=== PATIENT | male | born 1960 | race Caucasian/White ===

== ENCOUNTER 2021-06-01 12:33 | Emergency (ER) | payer MEDICAID ==
[~2021-06-01] VITALS: Ht 165.1 cm; Wt 83.0 kg
[2021-06-01 13:09] VITALS: BP 142/110
--- NOTE | 2021-06-01 13:14 | NUR ---
PT TO ABBE MUÑOZ
--- NOTE | 2021-06-01 13:39 | NUR ---
60 Y/O MALE C/O BODY RASH X 4 DAYS. DENIES PAIN. DENIES FEVER/CHILLS. DENIES N/V/D. DENIES SOB, DENIES CHEST PAIN. DENIES PMH NKA
[2021-06-01] MEDS ORDERED: diphenhydrAMINE 50 MG CAP PO ONE (15:25)
[2021-06-01] MEDS ORDERED: predniSONE 20 MG TAB PO ONE (15:25)
[2021-06-01] MEDS ORDERED: FAMOTIDINE 20 MG TAB PO ONE (15:25)
[2021-06-01] MEDS ORDERED: PRED20TA5 PO (15:49)
[2021-06-01] MEDS ORDERED: DIPH25TA53 PO (15:49)
[2021-06-01] MEDS ORDERED: FAMO-90 PO (15:49)
[2021-06-01 16:37] VITALS: BP 142/110
--- NOTE | 2021-06-01 16:37 | NUR ---
Patient discharged with v/s stable. Written and verbal after care instructions given and explained. Patient alert, oriented and verbalized understanding of instructions. Ambulatory with steady gait. All questions addressed prior to discharge. ID band removed. Patient advised to follow up with PMD. Rx of PREDISONE, PEPCID, AND BENADRYL given. Patient educated on indication of medication including possible reaction and side effects. Opportunity to ask questions provided and answered.
== END 2021-06-01 16:37 | disposition home or self-care (01) ==
LOC: MED 12:33
DX: T78.49XA Other allergy, initial encounter (principal); Z79.899 Other long term (current) drug therapy
CPT/HCPCS: 99284; J7512; Q0163

== ENCOUNTER 2021-06-07 06:23 | Inpatient (IN) | payer MEDICAID, OTHER ==
[~2021-06-07] VITALS: Ht 160 cm; Wt 81.6 kg
[~2021-06-07 06:23] MED LIST: DIPH25TA53 PO; FAMO-90 PO; PRED20TA5 PO
[2021-06-07 06:27] VITALS: BP 149/111
--- NOTE | 2021-06-07 06:34 | NUR ---
PT AMBULATORY TO BED 07.
--- NOTE | 2021-06-07 06:34 | NUR ---
Anna mills in [facility] - 06/07/21 at 0636 by MEDGARCÍAK PT AMBULATORY TO BED .
--- NOTE | 2021-06-07 06:55 | NUR ---
Dr. Yang examining patient.
--- NOTE | 2021-06-07 06:58 | NUR ---
60 y/o BIB SELF FOR CHEST PAIN X 1 HOUR. PT STATES THAT HE HAS HTN AND HAS BEEN TAKING HIS MEDS FOR HTN. PT WAS PRESCRIBED SOME ALLERGY MEDICAITON AND SINCE THEN PT HAS BEEN EXPERIENCING CHEST PAIN 05/22. DENIES F/N/D PMH:HTN NKA
[2021-06-07] MEDS ORDERED: ASPIRIN 325 MG TAB PO ONE (07:00)
[2021-06-07] MEDS ORDERED: NITROGLYCERIN 0.4 MG TAB SL ONE (07:00)
--- NOTE | 2021-06-07 07:13 | NUR ---
X-Ray at bedside.
--- NOTE | 2021-06-07 07:14 | NUR ---
REPORT RECIEVED FROM PRISCILA VICTORIA FOR TRANSFER OF CARE. PATIENT IS SITTING IN BED ALERT AND RESPONSIVE.
[2021-06-07 07:15] LABS: HEMATOCRIT 44.3 % (36-52); HEMOGLOBIN 14.8 g/dL (12.0-18.0); MEAN CORPUSCULAR HEMOGLOBIN 30 pg (27-31); MEAN CORPUSCULAR HGB CONC 33 g/dL (33-37); MEAN CORPUSCULAR VOLUME 89.3 fL (80-94); PLATELET COUNT (AUTO) 370 K/uL (140-450); RED BLOOD CELL COUNT(AUTO) 4.96 MIL/uL (4.20-6.10); RED CELL DISTRIBUTION WIDTH 14.3 % (11.6-13.7); WHITE BLOOD COUNT (AUTO) 14.6 K/uL (4.8-10.8)
--- NOTE | 2021-06-07 07:19 | NUR ---
Pt report given to JOIE CANDELARIA. Transfer of care at this time.
--- NOTE | 2021-06-07 07:40 | NUR ---
LISSY SPECIMEN COLLECTED AND HANDED TO EDWARDO YOUNG
--- NOTE | 2021-06-07 07:42 | NUR ---
1st dose of nitro given vitals before admin: 149/113 pulse @ 76 5/10 pain 2nd dose not given at this time, pt states pain has calmed down: 125/92 pulse @ 85 0/10 pain
[2021-06-07 08:05] LABS: EOSINOPHILS % (MANUAL) 2 % (0-4); LYMPHOCYTES % (MANUAL) 35 % (20-46); METAMYELOCYTES % 1 % (0-0); MONOCYTES % (MANUAL) 10 % (5-12)
[2021-06-07 08:06] LABS: CARBON DIOXIDE 23.9 mmol/L (21-32); CREATININE 0.9 mg/dL (0.6-1.3)
[2021-06-07 08:09] LABS: BARBITURATE, URINE NEGATIVE ng/ml (NEG <=200); BENZODIAZEPINE, URINE NEGATIVE ng/mL (NEG <=200); CANNABINOID, URINE NEGATIVE ng/mL (NEG <=50); COCAINE, URINE NEGATIVE ng/mL (NEG <=300); OPIATE, URINE NEGATIVE ng/mL (NEG <=2000); PHENCYCLIDINE SCREEN,URINE NEGATIVE ng/mL (NEG <=25)
[2021-06-07 08:22] LABS: ANION GAP 12.5 (8-16); POTASSIUM 3.4 mmol/L (3.5-5.1)
--- NOTE | 2021-06-07 09:40 | NUR ---
albert swabbed, anthony cryogenics engineer sent to henrique herrera
[2021-06-07] MEDS ORDERED: LISI-487 PO (09:55)
[2021-06-07] MEDS ORDERED: FAMO-368 PO (09:55)
[2021-06-07] MEDS ORDERED: METO25TA PO (09:55)
[2021-06-07] MEDS ORDERED: ATOR20TA PO (09:55)
[2021-06-07] MEDS ORDERED: DIPH-631 PO (09:55)
[2021-06-07] MEDS ORDERED: NITROGLYCERIN 0.4 MG TAB SL PRN (10:50)
[2021-06-07] MEDS ORDERED: MAG SULF 2000 MG/WATER PREMIX 50 ML IV PRN (10:50)
[2021-06-07] MEDS ORDERED: POTASSIUM CHLORIDE 10 MEQ TABER PO PRN (10:50)
--- NOTE | 2021-06-07 10:53 | NUR ---
Patient will be admitted to care of DR. EM. Admited to TELEMETRY. Will go to room 112-A. Belongings list completed. Report to JOIE HENDERSON.
[2021-06-07] MEDS ORDERED: MORPHINE SULFATE 2 MG/ML SYR IVP PRN (10:55)
[2021-06-07] MEDS ORDERED: ONDANSETRON 4 MG/2 ML VIAL IM/IVP PRN (10:55)
[2021-06-07] MEDS ORDERED: ZOLPIDEM 5 MG TAB PO PRN (10:55)
[2021-06-07] MEDS ORDERED: ACETAMINOPHEN 325 MG TAB PO PRN (10:55)
[2021-06-07] MEDS ORDERED: HYDROcodone/APAP 5/325 MG 1 TAB TAB PO PRN (10:55)
[2021-06-07] MEDS ORDERED: DOCUSATE SODIUM 100 MG GELCAP PO PRN (10:55)
[2021-06-07] MEDS ORDERED: LORazepam 2 MG/ML VIAL IM/IVP PRN (10:55)
[2021-06-07 11:10] VITALS: BP 155/91
[2021-06-07] MEDS: NACL 0.9% 1,000 ML IV SCH ×2 (11:57→23:36)
[2021-06-07 16:00] VITALS: BP 128/89
--- NOTE | 2021-06-07 19:30 | NUR ---
RECEIVED REPORT FROM RN DAYSHIFT NURSE AT BEDSIDE FOR CONTINUITY OF CARE. PT IS AOX4 ON ROOM AIR ALERT WITH NO SOB OR C/O OF PAIN. HE HAS A RIGHT F/A 22G RUNNING AT NORMAL SALINE AT 60 MLS/HR. [T IS AMBULATORY AND CONTENT WITH NO C/O VOICED AT THIS TIME.
[2021-06-07 20:00] VITALS: BP 134/96
--- NOTE | 2021-06-07 21:30 | NUR ---
PT WAS GIVEN ORDERED LOPRESSOR AND HEPARIN SQ. PT EDUCATED REGARDING ORDERED MEDICATION. REINFORCEMENT NEEDED, HOWEVER PT DID VERBALIZE UNDERSTANDING. V/S FOLLOWS: T 97.7 P 74 R 20 B/P 134/95 02 98% ON ROOM AIR. ALL ORDERED PRECAUTIONS IN PLACE.
[2021-06-07] MEDS: METOPROLOL 25 MG TAB PO SCH (22:43)
--- NOTE | 2021-06-07 23:36 | NUR ---
NEW BAG OF NORMAL SALINE HUNG AND RUNNING ORDERED. PT MADE AWARE OF THE PENDING URINE TEST. HE IS CONTINENT AND WAS GIVEN A CLEAN NEW URINAL TO PROVIDE URINE, PT VERBALIZED UNDERSTANDING.
[2021-06-08] VITALS: BP 142/94
--- NOTE | 2021-06-08 01:00 | NUR ---
ROUNDS DONE, PT V/S FOLLOWS: T 97.0 P 64 R 20 B/P 142/94 02 100% ON ROOM AIR. PT HAS NO C/O VOICED. URINE SAMPLE COLLECTED AND SENT TO LAB.
[2021-06-08 01:18] LABS: APPEARANCE,URINE CLEAR (CLEAR); BILIRUBIN,URINE NEGATIVE (NEGATIVE); BLOOD, URINE TRACE-I (NEGATIVE); COLOR,URINE YELLOW (YELLOW); LEUKOCYTE ESTERASE ,URINE TRACE (NEGATIVE); NITRITE, URINE POSITIVE (NEGATIVE); UGLUCOSE NEGATIVE (NEGATIVE)
[2021-06-08 01:24] LABS: RBC,URINE 0-5 /HPF (0-5)
[2021-06-08 04:00] VITALS: BP 136/101
--- NOTE | 2021-06-08 05:30 | NUR ---
ROUNDS DONE, PT IN BED NO C/O VOICED FLUIDS RUNNING ORDERED IV SITE INTACT NO ISSUES. ALL ORDERED PRECAUTIONS IN PLACE.
[2021-06-08 07:08] LABS: T4 (THYROXINE) 10.1 ug/dL (4.5-12.0)
[2021-06-08 07:12] LABS: BASOPHILS # (AUTO) 0.1 K/uL (0.00-0.22); BASOPHILS % (AUTO) 0.6 % (0.0-2.0); EOSINOPHILS # (AUTO) 0.4 K/uL (0-0.4); EOSINOPHILS % (AUTO) 2.6 % (0.0-4.0); HEMATOCRIT 44.1 % (36-52); HEMOGLOBIN 14.5 g/dL (12.0-18.0); LYMPHOCYTES # (AUTO) 4.5 K/uL (2.0-11.5); LYMPHOCYTES % (AUTO) 29.5 % (20.5-51.1); MEAN CORPUSCULAR HEMOGLOBIN 30 pg (27-31); MEAN CORPUSCULAR HGB CONC 33 g/dL (33-37); MEAN CORPUSCULAR VOLUME 90.4 fL (80-94); MONOCYTES # (AUTO) 1.7 K/uL (0.8-1.0); MONOCYTES % (AUTO) 11.3 % (1.7-9.3); NEUTROPHILS # (AUTO) 8.5 K/uL (1.8-7.7); PLATELET COUNT (AUTO) 363 K/uL (140-450); RED BLOOD CELL COUNT(AUTO) 4.88 MIL/uL (4.20-6.10); RED CELL DISTRIBUTION WIDTH 14.1 % (11.6-13.7); WHITE BLOOD COUNT (AUTO) 15.2 K/uL (4.8-10.8)
[2021-06-08 07:20] LABS: CHOL/HDL RATIO 4.1 (1-4.5); MAGNESIUM 2.2 mg/dL (1.8-2.4); PHOSPHORUS 3.7 mg/dL (2.5-4.9)
--- NOTE | 2021-06-08 07:20 | NUR ---
RECEIVED REPORT FROM FIELD REPRESENTATIVE/HEALTH EDUCATION NURSE. PT IS AWAKE, A&OX4. PT IS AMBULATORY, WITH BREATHING UNLABORED. CONTINENT OF THE BOWEL AND BLADDER. IV SITE ON RIGHT FA, 22G, RUNNING AT 60ML/HR NSS, INFUSING WELL. DISCUSSED PLAN OF CARE.
[2021-06-08 07:26] LABS: ANION GAP 8.7 (8-16); POTASSIUM 4.7 mmol/L (3.5-5.1)
[2021-06-08 08:00] VITALS: BP 135/94
--- NOTE | 2021-06-08 08:21 | NUR ---
PATIENT HAS BEEN SCREENED AND CATEGORIZED LOW NUTRITION RISK. PATIENT WILL BE SEEN WITHIN 7 DAYS OF ADMISSION. 06/13/[address]
[2021-06-08] MEDS: ATORVASTATIN 20 MG TAB PO SCH (08:49)
[2021-06-08] MEDS: ASPIRIN 81 MG TAB.CHEW PO SCH (08:50)
[2021-06-08] MEDS: METOPROLOL 25 MG TAB PO SCH ×2 (08:50→21:11)
[2021-06-08] MEDS: FAMOTIDINE 20 MG TAB PO SCH (08:50)
[2021-06-08] MEDS ORDERED: lisinopriL 20 MG TAB PO SCH (09:00)
--- NOTE | 2021-06-08 10:00 | NUR ---
EDUCATED PT ON RISKS OF SMOKING AND OFFERED SMOKING CESSATION INFORMATION. PT STATED HE DOES NOT WANT TO QUIT SMOKING AND DOES NOT CARE WHAT ITS EFFECTS ARE. PT WAS ADMINISTERED A NICOTINE PATCH, PT TOLERATING WELL. PT STATED HE DOES NOT HAVE CHEST PAIN BUT SLIGHT TIGHTNESS. GREASE WORKER ARRIVED TO SEE PT. CALL LIGHT IN REACH. ALL SAFETY MEASURES IN PLACE
[2021-06-08] MEDS: NICOTINE TRANSD SYS 21 MG/24 HR PATCH TD SCH (10:51)
--- NOTE | 2021-06-08 12:00 | NUR ---
PT IS AWAKE, BREATHING UNLABORED. DENIES PAIN AT THIS TIME. WILL CONTINUE TO MONITOR.
--- NOTE | 2021-06-08 17:00 | NUR ---
DC PLANNING PATIENT IS A 60-YEAR-OLD MALE ADMITTED IN THE [facility]/ED ON 06/07/2021 DUE TO COMPLAINTS OF CHEST PAIN AND SHORTNESS OF BREATH (PATIENT IS GUINEAN SPEAKING ONLY). JAYESH MET WITH PATIENT AT BEDSIDE TO DISCUSS AND GATHER HIS COLLATERAL INFORMATION. PATIENT REPORTED LIVING AT HOME WITH HIS ADULT DAUGHTER AT AN APARTMENT IN [facility]. PER PATIENT HIS DAUGHTER RADHA COLBY HIS EMERGENCY CONTACTS AND MEDICAL DECISION MAKER. PATIENT REPORTED NOT HAVING ADVANCE DIRECTIVES AND WAS INTERESTED ON GETTING THE INF.FORMS PROVIDED BY JAYESH. PATIENT REPORTED NOT HAVING A PCP DUE TO NOT HAVING INSURANCE SINCE NOT LONG AGO HE MOVED FROM [place] TO [place]. PATIENT ALSO REPORTED GOING TO A DOCTOR IN A CLINIC NEAR HIS APARTMENT IN [place] WHEN HE NEEDS TO SEE A DOCTOR. PATIENT REPORTED THAT THE LAST VISIT IN A CLINIC WAS ABOUT A MONTH AGO. PATIENT REPORTED THAT HE ALSO HAS APPLY FOR EMERGENCY [employer] AND IS EXPECTING HIS CARD TO ARRIVE IN THE MAIL ANYTIME NOW. PATIENT STATED THAT HE WILL FOLLOW UP WITH AN APPOINTMENT AFTER HE IS DC FROM [facility]. SW ALSO PROVIDED PATIENT WITH RESOURCES TO EMERGENCY BASICS, FOOD [employer] AND PROVIDED A LIST OF ADDITIONAL [place] CLINICS TO GET MEDICAL CARE IN HIS AREA AT L[place] COST. PATIENT ALSO REPORTED NOT HAVING ANY ISSUES GETTING OR TAKING MEDICATIONS FROM THE [facility] IN [facility]. PATIENT STATED NOT HAVING OR NEEDING DME AT HOME AND BEEN ACTIVE AND INDEPENDENT TO AMBULATE. PATIENT REPORTED TO JAYESH THAT HE WILL BE ASSISTED BY HIS DAUGHTER OR SON WITH HIS TRANSPORTATION BACK HOME WHEN SHE IS READY TO DC FROM [facility].JAYESH WILL FOLLOW UP NEEDED. Addendum: 06/08/21 at 1853 by Rufina ZABALA Amended: Links added.
--- NOTE | 2021-06-08 17:20 | NUR ---
PICC LINE NURSE AT BEDSIDE. PICC LINE INSERTED. PLACEMENT VERIFIED VIA XRAY. PT TOLERATED WELL. NO S/S OF DISTRESS. CALL LIGHT IN REACH. ALL SAFETY MEASURES IN PLACE.
--- NOTE | 2021-06-08 19:26 | NUR ---
RECEIVED PT FROM AM NURSE FOR CONTINUITY OF CARE.PT IS STSBLE
--- NOTE | 2021-06-08 19:30 | NUR ---
RECEIVED PT FROM AM NURSE FOR CONTINUITY OF CARE .PT IS STABLE
--- NOTE | 2021-06-08 19:32 | NUR ---
ENDORSED PT TO FIRE LOSS PREVENTION ENGINEER NURSE
[2021-06-08 20:00] VITALS: BP 135/96
[2021-06-08] MEDS: NACL 0.9% 1,000 ML IV SCH (20:15)
[2021-06-08] MEDS: lisinopriL 20 MG TAB PO SCH (21:18)
--- NOTE | 2021-06-08 21:30 | NUR ---
ALL SCHEDULED MEDICATIONS GIVEN, NO ADVERSE REACTIONS NOTED
--- NOTE | 2021-06-09 01:00 | NUR ---
PATIENT ASLEEP,BREATHING EVEN AND UNLABORED,NO DISTRESS NOTED
--- NOTE | 2021-06-09 03:00 | NUR ---
IN BED SLEEPING COMFORTABLY,BREATHING EVEN AND UNLABORED,NO DISTRESS NOTED.
[2021-06-09 04:00] VITALS: BP 138/81
--- NOTE | 2021-06-09 06:00 | NUR ---
PATIENT IS AWAKE, NO PAIN OR SOB NOTED
[2021-06-09 07:23] LABS: PHOSPHORUS 3.6 mg/dL (2.5-4.9)
--- NOTE | 2021-06-09 07:30 | NUR ---
ENDORSED PT TO AM NURSE FOR CONTINUITY OF CARE. PT IS STABLE
--- NOTE | 2021-06-09 08:00 | NUR ---
RECEIVED REPORT FROM THE NIGHT NURSE PT IS IN BED RESTING, IV INFUSING ORDERED.[id number]
[2021-06-09] MEDS: NICOTINE TRANSD SYS 21 MG/24 HR PATCH TD SCH (08:25)
[2021-06-09] MEDS: lisinopriL 20 MG TAB PO SCH (08:26)
[2021-06-09] MEDS: FAMOTIDINE 20 MG TAB PO SCH (08:26)
[2021-06-09] MEDS: ASPIRIN 81 MG TAB.CHEW PO SCH (08:27)
[2021-06-09] MEDS: ATORVASTATIN 20 MG TAB PO SCH (08:27)
[2021-06-09] MEDS: METOPROLOL 25 MG TAB PO SCH (08:39)
[2021-06-09] MEDS ORDERED: ASPI81CT95 PO (09:53)
[2021-06-09] MEDS ORDERED: LISI20TA29 PO (09:53)
[2021-06-09 11:34] VITALS: BP 138/90
--- NOTE | 2021-06-09 12:23 | NUR ---
PT DISCHARGED HOME, DISCHARGE INSTRUCTION GIVEN, IV, IV LINE REMOVED, PT WALKED WITH NURSE TO HIS TRANSPORTATION.[id number]
== END 2021-06-09 12:25 | disposition home or self-care (01) | DRG 203 ==
LOC: MED 06:23 → MTU 09:49
DX: M94.0 Chondrocostal junction syndrome [Tietze] (principal); E44.0 Moderate protein-calorie malnutrition; E87.1 Hypo-osmolality and hyponatremia; I25.10 Atherosclerotic heart disease of native coronary artery without angina pectoris; E78.5 Hyperlipidemia, unspecified; F17.210 Nicotine dependence, cigarettes, uncomplicated; K21.9 Gastro-esophageal reflux disease without esophagitis; Z20.822 Contact with and (suspected) exposure to COVID-19; I16.0 Hypertensive urgency; I77.810 Thoracic aortic ectasia; I10 Essential (primary) hypertension; E87.6 Hypokalemia; I25.2 Old myocardial infarction; Z95.5 Presence of coronary angioplasty implant and graft; Z68.31 Body mass index [BMI] 31.0-31.9, adult; Z79.899 Other long term (current) drug therapy; Z98.52 Vasectomy status; Z71.6 Tobacco abuse counseling
CPT/HCPCS: 36415; 71045; 80048; 80053; 80305; 81001; 83036; 83690; 83735; 83880; 84100; 84134; 84436; 84443; 84484; 85025; 85379; 85610; 85730; 87081; 87086; 93005; 99285; J0696; J1644; J7060; Q0092

== ENCOUNTER 2022-08-10 17:37 | Emergency (ER) | payer MEDICAID, OTHER ==
[~2022-08-10] VITALS: Ht 165.1 cm; Wt 86.2 kg
[~2022-08-10 17:37] MED LIST changes: +ASPI81CT95 PO; +ATOR20TA PO; -DIPH25TA53 PO; +FAMO-368 PO; -FAMO-90 PO; +LISI20TA29 PO; +METO25TA PO; -PRED20TA5 PO
[2022-08-10 17:48] VITALS: BP 147/99; PULSE 73; RESP 16; TEMP 97.8; O2SAT 95
[2022-08-10] MEDS ORDERED: COROTSOL LEFT EAR (18:02)
[2022-08-10 18:30] VITALS: BP 144/66
--- NOTE | 2022-08-10 18:30 | NUR ---
Patient discharged with v/s stable. Written and verbal after care instructions given and explained to parent/guardian. Parent/Guardian verbalized understanding. Ambulatorysteady gait. All questions addressed prior to discharge. Advised to follow up with PMD.
== END 2022-08-10 17:58 | disposition home or self-care (01) ==
LOC: MED 17:37
DX: H66.92 Otitis media, unspecified, left ear (principal); I10 Essential (primary) hypertension; Z79.899 Other long term (current) drug therapy
CPT/HCPCS: 99283